=== PATIENT | male | born 1955 | race Caucasian/White ===

== ENCOUNTER 2024-07-09 08:57 | Day surgery (SDC) | payer MEDICARE, BC, SELFPAY ==
[2024-07-09] VITALS (12 sets, daily range): BP systolic 91–167; BP diastolic 60–90; PULSE 54–79; RESP 14–16; TEMP 36.4–37.1; O2SAT 92–98; BMI 31.6
[2024-07-09] MEDS: SODIUM CHLORIDE 0.9 % (FLUSH) 10 ML SYRINGE IVF (09:25)
--- NOTE | 2024-07-09 09:46 | W.ANESCHARGE ---
Anesthesia Charges Start Date/Time Anesthesia Start Date: 07/09/24 Anesthesia Start Time: 10:06 Stop Date/Time Anesthesia Stop Date: 07/09/24 Anesthesia Stop Time: 11:07
--- NOTE | 2024-07-09 10:09 | W.PM.H&PU ---
History & Physical Update History & Physical Update H&P Reviewed and patient assessed: No changes noted
[2024-07-09] MEDS: CEFAZOLIN 2 GM in 0.9 % SODIUM CHLORIDE Mini-bag 100 ML IVPB (10:20)
[2024-07-09] MEDS: ROPIVACAINE 0.5% 30 ML 150 MG INJECTION (10:49)
--- NOTE | 2024-07-09 11:09 | W.ANESCHARGE ---
Anesthesia Charges Start Date/Time Anesthesia Start Date: 07/09/24 Anesthesia Start Time: 10:06 Stop Date/Time Anesthesia Stop Date: 07/09/24 Anesthesia Stop Time: 11:07
--- NOTE | 2024-07-09 13:06 | P.ORPRC_ITS ---
Procedure Note Date of procedure: 07/09/24 Procedure: PREOPERATIVE DIAGNOSIS: 1. Right knee medial and lateral meniscus tear POSTOPERATIVE DIAGNOSIS: 1. Right knee medial and lateral meniscus tear PROCEDURE: 1. Right knee arthroscopic partial medial and lateral meniscectomy 2. Right knee arthroscopic chondroplasty medial femoral condyle SURGEON: Denzel Lugo M.D. TOOLROOM MACHINIST: Lalo Phoenix PA-C. Of note, an religious assistant was critical for this case to aid in patient positioning, knee manipulation, instrument exchange, and closure. ANESTHESIA: Spinal EBL: 2ml TOURNIQUET: 30 min at 300 torr COMPLICATIONS: None evident INDICATIONS: The patient is a pleasant 69-year-old male who has experienced right knee pain particularly with any twisting or turning. Physical exam was concerning for medial meniscus tear, this was confirmed on MRI. Additionally, attempted nonoperative management has been tried, and failed. Thus, surgery was recommended. FINDINGS: Complex tear primarily involving the posterior horn approaching midbody medial meniscus. Posterior root was intact. Lateral meniscus also showed tearing of the more central portion. Posterior root was intact as well. ACL and PCL intact and robust. 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 Lateral compartment showed healthy articular cartilage. No loose bodies evident. DESCRIPTION OF PROCEDURE: After a thorough discussion of risks, benefits, and alternatives, the patient was brought to the operating room and placed upon the operating table. Induction of anesthesia was undertaken as previously noted. 2g iv Ancef was administered within 1 hr of incision preoperatively. Appropriate time-out was performed identifying proper patient, site, and procedure. The right lower extremity was prepped and draped in the appropriate sterile fashion using ChloraPrep. The limb was exsanguinated and tourniquet inflated. Anterolateral and anteromedial portals were established with an 11 blade, and a diagnostic arthroscopy was performed. This identified the findings as noted above. Following the diagnostic arthroscopy, a partial medial and lateral menisectomy was performed with the combination of basket forceps and a motorized shaver. Following this, the meniscus was re-probed and found to be stable. Approximately 10 % of the overall lateral meniscus and approximately 30- 33% of the medial meniscus required resection. Following this, the torpedo shaver was utilized for chondroplasty of the loose chondral flaps on the medial femoral condyle. At this stage, the shaver was reinserted into the suprapatellar pouch and all remaining meniscal debris was evacuated. Instruments were removed, excess fluid was drained, and closure performed with 4-0 Monocryl with Steri-Strips. Dressings were applied, the tourniquet deflated, and the patient was awoken from anesthesia and transferred to the PACU in stable condition. PLAN: 1. Weightbear as tolerated operative extremity. Crutch / walker ambulation assistance PRN. 2. Ice, acetominophen and/or ibuprofen, and oxycodone for pain as needed. 3. Knee range of motion and quad sets/straight leg raise regularly 4. Follow up with PA visit in 1-2 weeks for a wound check and possibly to initiate physical therapy.
== END 2024-07-09 12:56 | disposition home or self-care (01) ==
LOC: OR 09:00
PROVIDERS: PCP Student in an Organized Health Care Education/Training Program; Visit Provider Orthopaedic Surgery Sports Medicine
PROC: (CPT 29870; principal; 2024-07-09 11:00)
DX: S83.231A Complex tear of medial meniscus, current injury, right knee, initial encounter (principal); S83.281A Other tear of lateral meniscus, current injury, right knee, initial encounter; M22.41 Chondromalacia patellae, right knee
CPT/HCPCS: 29880; 01400; J0690; J1100; J2250; J2371; J2405; J2704; J2795; J3010